=== PATIENT | male | born 1975 | race Caucasian/White ===

== ENCOUNTER 2023-08-18 19:38 | Inpatient (IN) | payer MEDICAID ==
[~2023-08-18] VITALS: Ht 170.2 cm; Wt 95.7 kg
[2023-08-18] MEDS ORDERED: LORazepam 2 MG TABLET PO PRN (20:00)
[2023-08-18] MEDS ORDERED: HALOPERIDOL 5 MG TABLET PO PRN (20:00)
[2023-08-18] MEDS ORDERED: ZOLPIDEM TARTRATE 10 MG TABLET PO PRN (20:00)
[2023-08-18 21:11] LABS: GLUCOMETER DEV NAME(LOC) POC.BV; POC SARS-COV2 AG, FIA NEGATIVE (NEGATIVE)
[2023-08-18 21:37] VITALS: BP 126/72; PULSE 72; RESP 17; TEMP 98; O2SAT 98
[2023-08-19 08:19] LABS: BASOPHILS % (AUTO) 0.4 % (0.0-2.0); EOSINOPHILS % (AUTO) 2.5 % (1.0-6.0); HEMATOCRIT 42.7 % (41-53); HEMOGLOBIN 14.7 g/dL (13.5-17.5); LYMPHOCYTES % (AUTO) 34.6 % (22.0-44.0); MEAN CORPUSCULAR HEMOGLOBIN 31.4 pg (26.0-34.0); MEAN CORPUSCULAR HGB CONC 34.5 G/dL (31.0-37.0); MEAN CORPUSCULAR VOLUME 91 fL (80-100); MONOCYTES % (AUTO) 8.9 % (2.0-9.0); NEUTROPHILS # (AUTO) 3.6 K/uL (1.8-7.7); NEUTROPHILS % (AUTO) 53.6 % (40.0-70.0); PLATELET COUNT (AUTO) 214 K/uL (150-450); WHITE BLOOD COUNT (AUTO) 6.7 K/uL (4.5-11.0)
[2023-08-19 08:20] VITALS: BP 116/65; PULSE 75; RESP 18; TEMP 97.6; O2SAT 98
[2023-08-19 08:20] LABS: LYMPHOCYTES # (AUTO) 2.3 K/uL (1.0-4.8); MONOCYTES # (AUTO) 0.6 K/uL (0.1-1.0)
[2023-08-19 08:56] LABS: ALANINE AMINOTRANSFERASE 27 U/L (12-78); ALBUMIN 3.3 g/dL (3.4-5.0); ALKALINE PHOSPHATASE 93 U/L (46-116); ANION GAP 5 mmol/L (8-16); ASPARTATE AMINOTRANSFERASE 20 U/L (15-37); BILIRUBIN,TOTAL 0.5 mg/dL (0.1-1.0); CALCIUM, TOTAL 8.9 mg/dL (8.8-10.5); CARBON DIOXIDE 29 mmol/L (22-29); CHLORIDE 104 mmol/L (98-107); CHOL/HDL RATIO 3.3 (4.2-7.3); CHOLESTEROL 118 mg/dL (131-200); CREATININE 1.05 mg/dL (0.60-1.30); FREE T4 (FREE THYROXINE) 0.83 ng/dL (0.76-1.46); GLOMERULAR FILTR. RATE CALC > 60 mL/min (>60); GLUCOSE,RANDOM 95 mg/dL (70-110); HDL CHOLESTEROL 36 mg/dL (40-60); LDL CHOL (CALC.) 47 mg/dL (0-130); POTASSIUM 4.7 mmol/L (3.5-5.1); SODIUM SERUM 138 mmol/L (136-145); T4 (THYROXINE) 6.4 mcg/dL (4.7-13.3); THYROID STIMULATING HORMONE 2.29 uIU/mL (0.36-3.74); TOTAL PROTEIN, SERUM 6.7 g/dL (6.4-8.2); TRIGLYCERIDES 174 mg/dL (15-150); UREA NITROGEN, BLOOD 10 mg/dL (7-18)
[2023-08-19 08:57] LABS: HEMOGLOBIN A1C 5.5 % (3.8-5.6)
[2023-08-19] MEDS ORDERED: GuaiFENesin/D-METHORPHAN [SUGAR-FREE] 200-20MG/10 ML SYRUP UDCUP PO PRN (16:00)
[2023-08-19] MEDS ORDERED: LOPERAMIDE HCL 2 MG CAPSULE PO PRN (16:00)
[2023-08-19] MEDS ORDERED: DOCUSATE SODIUM 100 MG CAPSULE PO PRN (16:00)
[2023-08-19] MEDS ORDERED: ALBUTEROL SULFATE HFA 90 MCG/PUFF 8 GM INHALER IH PRN (16:00)
[2023-08-19] MEDS ORDERED: ONDANSETRON HCL 4 MG TABLET PO PRN (16:00)
[2023-08-19] MEDS ORDERED: MAG HYDROX/ALUMINUM HYD/SIMETH ES 30 ML SUSPENSION UDCUP PO PRN (16:00)
[2023-08-19] MEDS ORDERED: NICOTINE 14 MG/24 HOUR PATCH TD PRN (16:00)
[2023-08-19] MEDS ORDERED: ACETAMINOPHEN 325 MG TABLET PO PRN (16:00)
[2023-08-19] MEDS ORDERED: PETROLATUM,WHITE 28 GM JELLY TP PRN (16:00)
[2023-08-19] MEDS ORDERED: IBUPROFEN 400 MG TABLET PO PRN (16:00)
[2023-08-19] MEDS ORDERED: MAGNESIUM HYDROXIDE SUSPENSION 30 ML UDCUP PO PRN (16:00)
[2023-08-19] MEDS ORDERED: CloNIDine HCL 0.1 MG TABLET PO PRN (16:00)
[2023-08-19] MEDS: LURASIDONE HCL 40 MG TABLET PO SCH (16:37)
[2023-08-20 04:45] VITALS: RESP 18; TEMP 98
[2023-08-20 08:18] VITALS: BP 121/67; PULSE 64; RESP 18; TEMP 97.6; O2SAT 99
[2023-08-20] MEDS: LURASIDONE HCL 40 MG TABLET PO SCH (17:12)
[2023-08-20 20:15] VITALS: BP 113/76; PULSE 60; RESP 18; TEMP 97.7; O2SAT 100
[2023-08-21 08:16] VITALS: BP 110/71; PULSE 60; RESP 17; TEMP 97.1; O2SAT 99
[2023-08-21] MEDS: LURASIDONE HCL 40 MG TABLET PO SCH (16:54)
[2023-08-21 20:41] VITALS: BP 118/75; PULSE 69; RESP 18; TEMP 97.8
[2023-08-22 08:31] LABS: HEMOGLOBIN A1C 5.5 % (3.8-5.6)
[2023-08-22 08:39] VITALS: BP 107/77; PULSE 67; RESP 17; TEMP 97.5; O2SAT 97
[2023-08-22 08:57] LABS: CHOL/HDL RATIO 3.7 (4.2-7.3); THYROID STIMULATING HORMONE 3.49 uIU/mL (0.36-3.74)
[2023-08-22] MEDS: LURASIDONE HCL 40 MG TABLET PO SCH (16:55)
[2023-08-22 20:24] VITALS: BP 111/64; PULSE 70; RESP 18; TEMP 97.6; O2SAT 96
== END 2023-08-23 14:57 | disposition left against medical advice (07) | DRG 753 ==
LOC: B3A 19:57
PROVIDERS: ADMIT Psychiatry & Neurology Psychiatry; ATTEND Psychiatry & Neurology Psychiatry
DX: F31.4 Bipolar disorder, current episode depressed, severe, without psychotic features (principal); R45.851 Suicidal ideations; D72.829 Elevated white blood cell count, unspecified; F12.10 Cannabis abuse, uncomplicated; F41.9 Anxiety disorder, unspecified; G47.00 Insomnia, unspecified; Z20.822 Contact with and (suspected) exposure to COVID-19; R73.03 Prediabetes; I10 Essential (primary) hypertension; Z72.0 Tobacco use; Z59.00 Homelessness unspecified
CPT/HCPCS: 80053; 80061; 83036; 84436; 84439; 84443; 85025; 86592